=== PATIENT | female | born 1985 | race Caucasian/White ===

== ENCOUNTER 2017-03-10 00:44 | Emergency (ER) | payer SELFPAY ==
--- NOTE | 2017-03-10 20:06 | ER ---
ADMIT: 03/10/2017 RM/LOC: ER [facility] MR#: [id number] [facility] [address] [place], [place] [id number] ANDI BROWN [address] [place] [address] Emergency Room Report SEX: F AGE: 31 : 1985 DATE: 03/10/2017 The patient is a 31-year-old female with known gallbladder disease. Has seen General Surgery, but has refused interventions todate because of lack of insurance. Comes in tonight with typical biliary colic. Denies any fevers, chills, vomiting, or diarrhea. Exam remarkable for obese female with marked tenderness in the right upper quadrant. CT abdomen and pelvis shows no obvious disease; however, there is increased contrast around the gallbladder consistent with inflammatory change. Normal CBC, CMP, CRP, and lipase. Negative urine . Urine does show 2+ blood, 24 rbc's. The patient just finished her menstrual period. The patient received IV fluids, Zofran, Toradol, Dilaudid, and Protonix with relief of pain. Home with hydrocodone 5/325 mg, #30 plus 6 from Pyxis. Low-fat, low-protein diet. Follow up with Dr. Dove and Dr. Newman. Strongly encourage cholecystectomy. Christopher Stuart MD/ pa JOB #: [id number] CC: Christopher Stuart MD, Attending Physician Eugene Dove MD, Family Physician MD Anibal Bowden MD
== END 2017-03-10 02:50 | disposition home or self-care (01) ==
LOC: ER 00:44
DX: K80.10 Calculus of gallbladder with chronic cholecystitis without obstruction (principal); E66.9 Obesity, unspecified